=== PATIENT | male | born 1955 | race Caucasian/White ===

== ENCOUNTER → 2016-08-22 | Outpatient (CLI) | payer OTHER ==
[~2016-08-22] VITALS: Ht 170.2 cm; Wt 81.6 kg
[~2016-08-22] MED LIST: DULERA 100 MCG/13 GM INH; HYDROXYZINE HCL25 M1 PO; METFORMIN HCL500 MG PO; NAPROSYN500 MG PO; NITROGLYCERIN0.4 MG SL; OMEPRAZOLE40 MG PO; OXYCONTIN10 M1 PO; SPIRIVA INH; TRAZODONE HCL100 MG PO; VYTORIN 10-401 EACH PO
--- NOTE | ~2016-08-22 | CATHLAB ---
[facility] [address] [place] [address] INVASIVE PROCEDURE REPORT Name: BRIDGETTE LERMA JOYCELYN Room #: REG [facility] [id number] Admission: 08/22/16 Attend Phys: Jarrett Ibarra, Discharge: Date of : 59 Date of Service: 08/22/16 0843 Report #: [id number] THIS REPORT FOR: //name// CC: Jarrett Ritchie PROCEDURES: Left ventriculography, coronary angiography, abdominal or selective renal angiography. DESCRIPTION OF PROCEDURE: The patient brought to the catheterization lab with recurrent chest pain, abnormal nuclear test, history of some renal insufficiency. Right groin prepped and draped in sterile manner. A 1% Xylocaine was used for local anesthesia. Versed was given for conscious sedation, a 6-[place] sheath in the right femoral artery over the wire. Initially, a straight pigtail catheter performed a single DIETRICH ventriculogram and all exchanges were made over the wire. FL4 for left coronary system, FR4 for the right coronary system: LV function with mild inferior wall, hypo, EF 50%. Abdominal aorta was mildly ectatic but not aneurysmal. There was a moderate calcification. FL4 for left coronary system with significant calcification proximal, but no significant occlusive disease. JR4 for the right, which is large, dominant vessel. Previously placed stents were widely patent with minimal restenosis. There is no indication for intervention. I did utilize a JR4 for selective renal arteries. They appeared to be single and widely patent. The patient tolerated it well. Mynx closure was utilized without any complication in the groin. HEMODYNAMICS: Aortic 100/72, LV 98/4. IMPRESSION: 1. Left main with mild disease giving rise to left anterior descending coronary artery and circumflex. 2. Left anterior descending coronary artery with proximal calcification and diffuse irregularities, moderate-sized diagonal relatively small distal vasculature. 3. Circumflex marginal nondominant with also mild irregularities. 4. Large dominant right coronary artery with in-stent restenosis is mild and well preserved posterior descending coronary artery and posterolateral coronary artery. 5. Normal left ventricular size and subtle inferior wall hypokinesis, ejection fraction 50% range. 6. Single bilateral renal arteries are widely patent without significant occlusive disease. 7. Abdominal aorta also intact without aneurysm. RECOMMENDATION: Continue aggressive risk factor modification. Hold [address] [address] INVASIVE PROCEDURE REPORT Name: FLORENTINBRIDGETTE LEE Room #: REG CL Casey#: [id number] Admission: 08/22/16 Attend Phys: Jarrett Ibarra, Discharge: Date of : 59 Date of Service: 08/22/16 0843 Report #: [id number] for 48 hours. No lifting for 48 hours. No lying in tub, Jacuzzi, or [place] for a week. Follow up with Dr. Ritchie and Dr. Roberts. By: [id number] Jarrett Ibarra MD, FACC /nt
--- NOTE | ~2016-08-22 | H ---
[facility] [place] [address] HISTORY AND PHYSICAL Name: BRIDGETTE LERMA Room #: REG ZOYA PalacioNarendraDonalNarendra#: [id number] Admission: 08/22/16 Attend Phys: Jarrett Ibarra MD, Discharge: Date of : 59 Report #: [id number] THIS REPORT FOR: //name// CC: Jarrett SMALL DO Cecilio Ritchie DO DATE OF SERVICE: 08/22/2016 HISTORY OF PRESENT ILLNESS: The patient is a 61-year-old male who is admitted here this morning for cardiac catheterization. He was sent up by Dr. Guido Small, who is manager property in [place], [place]. The patient had had some recurrent chest pain and an abnormal nuclear study suggesting an inferolateral ischemia around the prior limited inferior infarct. He had had prior stents placed some time, possibly back in 2005 at [facility]. Catheterization in 2009 did not show significant progression. [id number]-[id number] LAD and circumflex disease in the right was a dominant vessel. Only limited inferior wall hypokinesis. This workup was ensued because of a potential for hernia repair by Dr. Braga. He is a continued tobacco user pack plus a day. Has significant family history and also diabetes. He is compliant with his medications. Metformin has been held. In addition to the metformin, he has been on hydroxyzine, Vytorin , Dulera, Naprosyn p.r.n., oxycodone for chronic pain, omeprazole 40, trazodone and Spiriva inhaler. PAST MEDICAL HISTORY: Positive for coronary artery disease with right coronary stents, hypercholesterolemia, chronic pain, bipolar disorder, COPD, continued tobacco use, hiatal hernia, inguinal hernia, cataracts, migraines, cholecystectomy, and prior orthopedic neck surgery. ALLERGIES: CODEINE, RESTORIL, DOXYCYCLINE, AND CIPRO. FAMILY HISTORY: Mother had an infarct and father had a bypass in his 50s or 60 he states. SOCIAL HISTORY: He is , has five children in total, continued tobacco use. Four cups of coffee a day. No alcohol. PHYSICAL EXAMINATION: VITAL SIGNS: Blood pressure 102/70, pulse 70s. HEENT: Eyes reveal xanthelasmas. Pharynx is clear. NECK: Shows preserved upstrokes without JVD. There is a faint left-sided bruit. LUNGS: Prolonged expiratory phase, clear. CARDIOVASCULAR: Regular rate and rhythm, S1, S2 distant. ABDOMEN: Soft. No HSM or abdominal bruit. [facility] [address] [place] [address] HISTORY AND PHYSICAL Name: BRIDGETTE LERMA Room #: REG [facility].#: [id number] Admission: 08/22/16 Attend Phys: Jarrett Ibarra MD, Discharge: Date of : 59 Report #: [id number] EXTREMITIES: Reveal diminished pulses, but they are faintly intact distally. NEUROLOGIC: Intact. MUSCULOSKELETAL: No gross joint deformity. Generalized arthritic changes are noted. SKIN: Warm and dry without xanthoma or ulcer formation. ASSESSMENT: 1. Coronary artery disease with suspected inferior wall ischemia on the nuclear stress testing. 2. Recurrent chest pain consistent with angina. 3. Continued tobacco use, chronic obstructive pulmonary disease. 4. Hypercholesterolemia. 5. History of bipolar disorder. 6. Diabetes. 7. History reflux, hiatal hernia. RECOMMENDATIONS AND PLAN: We will proceed to the catheterization lab to delineate the anatomy and intervention as indicated. Risks, benefits, alternatives were discussed with him. Thank you for allowing me to assist in the care of this patient. By: [id number] Jarrett Ibarra MD, FACC /nt
[2016-08-22 07:13] VITALS: BP 107/76
[2016-08-22 07:24] LABS: HEMATOCRIT 43.9 % (42.0-52.0); MCH 29.5 pg (26.0-34.0); MCV 86.7 fL (80.0-100.0); RBC 5.07 mil/uL (4.50-6.00); RDW 14.1 % (10.5-14.5); WBC 6.6 thou/uL (4.0-11.0)
[2016-08-22 07:41] LABS: CALCIUM 9.5 mg/dL (8.5-10.1); POTASSIUM 4.2 mmol/L (3.5-5.1)
== END | disposition home or self-care (01) ==
LOC: CATH 06:43
PROVIDERS: Internal Medicine Cardiovascular Disease
DX: I25.10 Atherosclerotic heart disease of native coronary artery without angina pectoris (principal); I50.9 Heart failure, unspecified; J44.9 Chronic obstructive pulmonary disease, unspecified; E11.9 Type 2 diabetes mellitus without complications; E78.5 Hyperlipidemia, unspecified; I10 Essential (primary) hypertension; K21.9 Gastro-esophageal reflux disease without esophagitis; F17.210 Nicotine dependence, cigarettes, uncomplicated; G43.909 Migraine, unspecified, not intractable, without status migrainosus; E78.00 Pure hypercholesterolemia, unspecified; F31.9 Bipolar disorder, unspecified; Z90.49 Acquired absence of other specified parts of digestive tract; Z95.5 Presence of coronary angioplasty implant and graft; Z98.890 Other specified postprocedural states; Z98.49 Cataract extraction status, unspecified eye